=== PATIENT | female | born 1945 | race American Indian/Alaskan Native ===

== ENCOUNTER 2020-02-02 12:51 | Outpatient (CLI) | payer MEDICARE ==
--- NOTE | 2020-02-02 14:55 | Mammography Report ---
LEFT DIAGNOSTIC MAMMOGRAM INDICATION: Ultrasound-guided core biopsy of left breast mass at the 11:30 position. COMPARISON: 01/12/2020. FINDINGS: Left breast CC and LM projection mammograms were obtained. These document accurate location of a U-sh aped biopsy marker within a previously noted left superior breast mass. IMPRESSION: Left breast mammographic images documenting accurate location of a U-shaped biopsy marker within a pr eviously noted left breast mass at the 11:30 position. BI-RADS Category 4: Suspicious for Malignancy. Signer Name: Randall Roca MD Signed: 02/02/2020 2:54 PM Workstation Name: [id number]
--- NOTE | 2020-02-02 15:01 | Ultrasound Report ---
ULTRASOUND-GUIDED CORE NEEDLE BIOPSY Left BREAST WITH CLIP PLACEMENT INDICATION: Left breast mass at 11:30 position COMPARISON: 01/12/2020. FINDINGS: Informed consent was obtained. The lesion within the left breast at 11:30 position, 3 cm from the nip ple, was identified with ultrasound. The overlying skin was cleansed with chloro prep and local anest hesia was obtained with a 1% lidocaine solution. Under ultrasound guidance a 14-gauge spring loaded c ore biopsy needle was advanced to the lesion. A total of 4 core samples were obtained. A a U-shaped b iopsy marker was placed to adolph the site of the biopsy. Specimen samples were placed in formalin and sent to pathology for analysis. Patient tolerated the procedure well and no immediate complications were identified. IMPRESSION: Technically successful ultrasound guided core biopsy of left breast lesion at the 11:30 position with accurate placement of a U-shaped biopsy marker. An addendum will be added to this report once pathology results are available. Signer Name: Randall Roca MD Signed: 02/02/2020 3:00 PM Workstation Name: [id number]
== END 2020-02-02 12:52 | disposition home or self-care (01) ==
LOC: SPVWC 12:51
PROVIDERS: ATTEND Surgery
DX: N63.22 Unspecified lump in the left breast, upper inner quadrant (principal); R92.8 Other abnormal and inconclusive findings on diagnostic imaging of breast; D24.2 Benign neoplasm of left breast; N64.89 Other specified disorders of breast
CPT/HCPCS: 88305; 88341; 88342